=== PATIENT | male | born 1960 | race Caucasian/White ===

== ENCOUNTER 2024-11-05 14:47 | Outpatient (AMB) | payer MEDICARE, SELFPAY ==
--- NOTE | 2024-11-05 14:54 | MHC.OFFVIS ---
Vital Signs 11/05/24 14:57 Height 6 ft 4 in Weight 277 lb 12.519 oz BMI 33.8 BP 114/64 Blood Pressure Location Lt brachial Position Sitting Pulse 78 Pulse Source Pulse Oximeter Pulse Oximetry (%) 100 Oxygen Delivery Method Room Air Intake Visit Reasons: sleep apnea Info Analyst Required: No Accompanied by: Self / Same As Patient Allergies No Known Allergies Allergy (Verified 11/05/24 14:58) HPI Comments Details: The patient is here for pulmonary evaluation. The patient is a 64-year-old gentleman known underlying sleep apnea for many years. He has had total about 4 machines altogether. He has been very adherent to his CPAP therapy. He tolerates it very well for more than 4 hours a night. The therapy has been very affecting beneficial for him. He can not see himself sleeping without his CPAP. [place] his machine with him. He does not use any water. He does use a nasal mask with it and right now he has a refurbish Respironics Dreamstation 1. Patient does need new prescriptions supplies. I will go ahead and request supplies from his [employer], [employer]. He will bring his PAP machine to the next visit in 6 months so we can review and see if he needs a replacement machine. [facility] Medical History (Updated 11/05/24 @ 21:47 by Luisito Romero MD) MELISSA on CPAP Social History (Updated 11/05/24 @ 14:58 by Skye Mccracken CMA) Alcohol intake: current Alcohol intake frequency: holidays/special occasions only Patient Tobacco Use Status: Never used Tobacco Review of Systems Const All systems reviewed & are unremarkable except as noted in HPI and below Denies chills, Denies daytime sleepiness, Denies fatigue, Denies fever(s), Denies poor appetite, Denies snoring, Denies stops breathing during sleep, Denies weakness, Denies weight gain and Denies weight loss Eyes Denies loss of vision ENT Denies dizziness and Denies hearing loss Card Denies chest pain, Denies irregular heart rhythm, Denies claudication, Denies leg edema, Denies lightheadedness, Denies palpitations, Denies dyspnea on exertion and Denies orthopnea Resp Denies cough, Denies excessive phlegm production, Denies dyspnea on exertion, Denies snoring and Denies wheezing GI Denies abdominal pain, Denies hematochezia, Denies change in bowel habits, Denies nausea and Denies vomiting Musc Denies arthralgias, Denies muscle weakness, Denies numbness and Denies other Skin/Breast Denies nail changes and Denies rash Neuro Denies Abnormal speech present, Denies dizziness, Denies loss of vision, Denies memory loss, Denies numbness and Denies weakness Psych Denies depression and Denies memory loss Endo Denies fatigue and Denies palpitations Azam/Lymph Denies easy bruising Aller/Immun Denies wheezing Physical Exam Vital Signs: Last Vital Signs Pulse 78 11/05/24 14:57 BP 114/64 11/05/24 14:57 Pulse Ox 100 11/05/24 14:57 Oxygen Delivery Method Room Air 11/05/24 14:57 BMI result Body Mass Index 33.8 Const General: comfortable HEENT Head: Yes normocephalic Neck Neck: Yes supple Chest Chest palpation & inspection: normal inspection of the chest Resp Effort & Inspection: normal respiratory effort Auscultation: clear to auscultation bilaterally Cardio Heart sounds: S1 normal heart sound present and S2 normal heart sound present GI Palpation (GI): Soft to palpation Skin General skin exam: no rashes or lesions noted Neuro Speech: No Abnormal speech present Extrem General: Yes no clubbing, cyanosis or edema Assessment & Plan Assessment & Plan (1) MELISSA on CPAP: Code(s): G47.33 - Obstructive sleep apnea (adult) (pediatric) Category: Medical Plan continue APAP (Respironic DS1), nasal mask. Supplies through [facility] 6 months, will bring APAP to check Coding Level of Care Code New Pt Level 3 (92585) Diagnoses MELISSA on CPAP G47.33 Time Spent (min) 30
[2024-11-05 14:57] VITALS: BP 114/64; PULSE 78; O2SAT 100; BMI 33.8
--- OUTSIDE RECORDS SUMMARY | 2024-11-05 16:03 | XMS_ITS | Clinical Summary ---
Author Organization [facility] [place] [address] Care Team Providers Care Language Pathologist Name Role Phone Dale Glez DO Primary Care Provider [phone] Medications hydrocortisone (ANUSOL-HC) 2.5 % rectal creamIndication s:Hemorrhoids, unspecified hemorrhoid type Insert into the rectum 2 (two) times a day if needed for hemorrhoids (for rectal discomfort) for up to 14 days. Apply externally to rectum as needed for rectal discomfort 30 g 1 10/15/19 25 Active hydrocortisone- pramoxine (Analpram-HC) 2.5-1% rectal creamIndication s:Hemorrhoids, unspecified hemorrhoid type Insert 1 Application into the rectum 2 (two) times a day if needed for hemorrhoids for up to 10 days. 30 g 10/12/19 25 025 Discontinued hydrocortisone- pramoxine (ANALPRAM-HC) 2.5-1% rectal creamIndication s:Hemorrhoids, unspecified hemorrhoid type INSERT 1 APPLICATION INTO THE RECTUM 2 (TWO) TIMES A DAY IF NEEDED FOR HEMORRHOIDS FOR UP TO 10 DAYS. 30 g 1 10/15/19 25 025 Discontinued Encounters Date Type Department Care Team Description 10/11/2024 Telephone Gastroenterology - [address] [facility] [address] [place] [address] Massimo Shaw MD from Last 3 Months Social History Tobacco Use Types Packs/Day Years Used Date Smoking Tobacco: Never Assessed Sex and Gender Information Value Date Recorded Sex Assigned at Not on file Legal Sex Male 5:53 AM EST Gender Identity Not on file Sexual Orientation Not on file Plan of Treatment Health Maintenance Due Date Last Done Comments DTaP,Tdap,and Td Vaccines (1 - Tdap) 1977 Pneumococcal Vaccine: 50+ Ye ars (1 of 1 - PCV) 2008 Zoster Vaccines (1 of 2) 2008 COVID-19 Vaccine ( - 2023-2 5 season) 2024 Abdominal Aortic Aneurysm (A AA) Screen 10/11/2024 Cholesterol Screening (Lipid Panel) 10/11/2024 Colorectal Cancer Screening: Colonoscopy 10/11/2024 Depression Screening 10/11/2024 Falls Risk Assessment 10/11/2024 Hepatitis C Screening 10/11/2024 Social Influencers of Health Screening 10/11/2024 Influenza Vaccine (Season Ended) 2025 RSV Immunization Adult Patie nts (1 - 1-dose 75+ series) 2033 HIB Vaccines Aged Out No longer eligi ble based on patient's age to complete this topic HPV Vaccines Aged Out No longer eligi ble based on patient's age to complete this topic Hepatitis A Vaccines Aged Out No long er eligible based on patient's age to complete this topic Hepatitis B Vaccines Aged Out No long er eligible based on patient's age to complete this topic IPV Vaccines Aged Out No longer eligi ble based on patient's age to complete this topic MMR Vaccines Aged Out No longer eligi ble based on patient's age to complete this topic Meningococcal ACWY Vaccine Aged Out N o longer eligible based on patient's age to complete this topic Meningococcal B Vaccine Aged Out No l onger eligible based on patient's age to complete this topic RSV Immunization Patients Un willie 20 months Aged Out No longer eligible b ased on patient's age to complete this topic Varicella Vaccines Aged Out No longer eligible based on patient's age to complete this topic Care Teams Language Pathologist Relationship Specialty Start Date End Date Dale Glez DO [address] [place] [id number] PCP - General Internal Medicine 06/05/17
== END 2024-11-05 15:23 | disposition home or self-care (01) ==
LOC: HO.HPS 14:52
PROVIDERS: PCP Internal Medicine; Visit Provider Hospitalist
DX: G47.33 Obstructive sleep apnea (adult) (pediatric) (principal)
CPT/HCPCS: 99203

== ENCOUNTER → 2024-11-05 14:47 | Outpatient (BNVA) | payer MEDICARE, SELFPAY | PROVIDERS: PCP Internal Medicine; Visit Provider Hospitalist | DX: G47.33 Obstructive sleep apnea (adult) (pediatric) (principal) | CPT/HCPCS: 99202 ==